=== PATIENT | male | born 1950 | race Caucasian/White ===

== ENCOUNTER 2021-07-26 17:51 | Inpatient (IN) | payer OTHER ==
[~2021-07-26] VITALS: Ht 152.4 cm; Wt 96.6 kg
[2021-07-27] MEDS ORDERED: COUMARIN1 GM PO ×2 (00:29→00:30)
[2021-07-27] MEDS ORDERED: LASIX 40 MG TAB40 MG PO (00:30)
[2021-07-27] MEDS ORDERED: PRINIVIL20 M1 PO (00:31)
[2021-07-27] MEDS ORDERED: ZYLOPRIM100 MG PO (00:31)
[2021-07-27] MEDS ORDERED: CRESTOR20 MG PO (00:31)
[2021-07-27 04:00] VITALS: BP 136/81
[2021-07-27 05:24] LABS: HEMATOCRIT 34.9 % (42.0-52.0); HEMOGLOBIN 11.6 gm/dL (14.0-18.0); MCH 30.7 pg (26.0-34.0); MCHC 33.2 g/dL (28.0-37.0); MCV 92.6 fL (80.0-100.0); RBC 3.77 mil/uL (4.50-6.00); WBC 6.3 thou/uL (4.0-11.0)
--- NOTE | 2021-07-27 05:24 | NUR ---
ADMIT PT ADMITTED DIRECT ADMIT FROM [facility] ED. BEING ADMITTED WITH GROSS HEMATURIA. ARRIVED WITH EMS. ADMISSION ASSESSMENT AND QUESTIONAIRE COMPLETED. PT A/O X4. UP WITH SBA. LUNGS DIMINISHED AND ON 2 LITERS O2 VIA NC. REPORTS PENIS PAIN AND ABDOMINAL PAIN FROM BLADDER DISTENSION. BONE CATHETER IRRIGATED AND LARGE CLOTS REMOVED. REPLACED CATHETER WITH 3 WAY CATHETER AND CBI INITIATED. LARGE CLOTS REMOVED URINE CLEARED THROUGHOUT SHIFT BUT WOULD CLOT OFF IF RATE OF CBI DECREASED. 2 DOSES OF MORPHINE GIVEN WITH SOME EFFECT PT RESTED EASIER AFTER MEDICATION. IV STARTED IN RIGH HAND 22 G AND NS INFUSING AT 75CC/HR 1 GRAM OF ROCEPHIN GIVEN ORDERED CONTINUE TO MONITOR.
[2021-07-27 05:55] LABS: INR 2.86; PROTIME 29.7 Seconds (10.5-12.1)
[2021-07-27 06:07] LABS: ALBUMIN 3.6 g/dL (3.4-5.0); CALCIUM 8.7 mg/dL (8.5-10.1); CREATININE 0.9 mg/dL (0.7-1.3); POTASSIUM 3.8 mmol/L (3.5-5.1); TOTAL BILIRUBIN 1.1 mg/dL (0.2-1.0)
--- NOTE | 2021-07-27 08:09 | NUR ---
Assess due to high BMI 41.6/extreme obesity. Admit with hematuria, urinary retention. Hx Hodgkins lymphoma with chemo. CT indicating ? met process. NPO for now, on IVF. No reports wt or appetite changes. Low nutrition risk.
[2021-07-27 10:11] LABS: % SATURATION 19 % (20-39); IRON 70 ug/dL (65-175); TIBC 376 ug/dL (250-450)
[2021-07-27] MEDS ORDERED: PRINIVIL20 MG PO (10:32)
[2021-07-27] MEDS ORDERED: WARFARIN SODIUM4 MG PO (10:32)
[2021-07-27] MEDS ORDERED: ROSUVASTATIN CA20 MG PO (10:33)
[2021-07-27] MEDS ORDERED: FUROSEMIDE 40 M40 M1 PO (10:33)
[2021-07-27] MEDS ORDERED: PRED FORTE 1% EY5 M1 RT. EYE (10:34)
[2021-07-27] MEDS ORDERED: WARFARIN SODIUM5 MG PO (10:35)
[2021-07-27] MEDS ORDERED: ALLOPURINOL 10100 M1 PO (10:36)
[2021-07-27] MEDS ORDERED: METOPROLOL SUCC50 MG PO (10:36)
[2021-07-27 12:00] VITALS: BP 143/65
[2021-07-27 16:00] VITALS: BP 130/69
[2021-07-27 18:47] LABS: URINE BILIRUBIN NEGATIVE (Negative); URINE BLOOD 3+ (Negative); URINE CLARITY CLEAR; URINE COLOR YELLOW; URINE GLUCOSE-RANDOM* NEGATIVE (Negative); URINE KETONES NEGATIVE (Negative); URINE LEUKOCYTES-REFLEX NEGATIVE (Negative); URINE NITRITE-REFLEX NEGATIVE (Negative); URINE PROTEIN (DIPSTICK) NEGATIVE (Negative); URINE UROBILINOGEN 0.2 E.U./dl (0.2-1.0)
[2021-07-27 19:35] LABS: BACTERIA-REFLEX 1-9 Few /HPF (None Seen); CASTS None Seen /LPF (None Seen); CRYSTALS None Seen /LPF (None Seen); SQUAMOUS 0-3 Few /LPF (0-3); URINE RBC 3-10 Few /HPF (NONE SEEN); URINE WBC-REFLEX 0-5 Rare /HPF (0-5)
[2021-07-27 19:58] VITALS: BP 134/70
[2021-07-28 00:06] LABS: IgG 1602 mg/dL (603-1613)
[2021-07-28 03:35] LABS: HEMATOCRIT 33.1 % (42.0-52.0); HEMOGLOBIN 10.9 gm/dL (14.0-18.0); MCH 30.2 pg (26.0-34.0); MCHC 32.8 g/dL (28.0-37.0); MCV 92.2 fL (80.0-100.0); RBC 3.59 mil/uL (4.50-6.00); RDW 15.7 % (10.5-14.5); WBC 4.9 thou/uL (4.0-11.0)
[2021-07-28 03:49] VITALS: BP 157/76
[2021-07-28 04:34] LABS: INR 2.82; PROTIME 29.3 Seconds (10.5-12.1)
[2021-07-28 04:37] LABS: ALBUMIN 3.2 g/dL (3.4-5.0); CALCIUM 8.5 mg/dL (8.5-10.1); CREATININE 0.9 mg/dL (0.7-1.3); PHOSPHORUS 3.3 mg/dL (2.5-4.9); POTASSIUM 3.2 mmol/L (3.5-5.1)
--- NOTE | 2021-07-28 06:06 | NUR ---
PATIENT HAS BEEN KEPT NPO FROM MIDNIGHT ON IN ANTICIPATION OF TODAYS PROCEDURE DESPITE ORDER NOT BEING PLACED UNTIL MORNING.
[2021-07-28 07:30] VITALS: BP 149/115
[2021-07-28 11:21] VITALS: BP 128/75
[2021-07-28 15:08] LABS: CERULOPLASMIN 29.5 mg/dL (16.0-31.0)
[2021-07-28 15:10] VITALS: BP 154/82
--- NOTE | 2021-07-28 15:12 | NUR ---
Case opened to follow for dc planning. Chart reviewed and case discussed with the care team. Cm role introduced to the pt/his at bedside. Pt is a&ox4 and indicates that he is normally indep with tx,gait and adl's at home. He can avoid steps. No dme or hh. Plan is dc home with madrigal and leg bag with outpt urology f/u in the [facility] office in [place]. Pt and indicate they have the contact info for f/u appts and are aware that GI and Pulm are also recommending outpt f/u for his new liver chirrhosis and lung nodule bx. Pt's works fulltime but will be off for the next week due to the holiday. Pt's pcp is Dr. Amy Myers at [facility]. They deny an dc concerns at this time. Ur nurse notified that pt's primary ins is [employer] per his 's employer ([employer]) and his medicare is secondary. Will follow along should dc needs arise.
--- NOTE | 2021-07-28 16:23 | NUR ---
ASSUMED CARE AT SHIFT CHANGE. PT A/O X 4, ANXIOUS AT TIMES. CONTINUING ON CBI, WEAN TOLERATED PER UROLOGY. PT CONTINUES WITH PINK UO WITH SMALL CLOTS THIS AFTERNOON. C/O BURNING PAIN AT CATHETER INSERTION SITE WITH MOVEMENT. ALSO SOME PRESSURE IN BLADDER WHEN BONE BAG IS FULL. PT UP WITH SBA TO BSC THIS AFTERNOON. STEADY GAIT. VSS. WILL CONT TO MONITOR AND FOLLOW POC.
[2021-07-28 19:32] VITALS: BP 120/68
[2021-07-29 04:53] VITALS: BP 128/62
--- NOTE | 2021-07-29 05:11 | NUR ---
PT DID WELL THRO THE NOC. LESS ANXIETY WITH THE CBI.[address] WAY [address], CBI AT A SLOW RATE AND URINE IS NOT BLOODY. NO CLOTS NOTED. PT REPORTS FEELING LIKE WANTING TO URINATE AND A LITTLE PRESSURE BUT YET DOES NOT NEED ANY PAIN MEDS.
[2021-07-29 05:52] LABS: HEMATOCRIT 31.4 % (42.0-52.0); HEMOGLOBIN 10.3 gm/dL (14.0-18.0); MCH 30.2 pg (26.0-34.0); MCV 91.7 fL (80.0-100.0); RBC 3.42 mil/uL (4.50-6.00); RDW 15.7 % (10.5-14.5); WBC 3.1 thou/uL (4.0-11.0)
[2021-07-29 06:30] LABS: PROTIME 13.7 Seconds (10.5-12.1)
[2021-07-29 06:37] LABS: INR 1.27
[2021-07-29 07:30] VITALS: BP 130/65
[2021-07-29] MEDS ORDERED: FLOMAX0.4 MG PO (08:46)
[2021-07-29] MEDS ORDERED: CEFUROXIME500 MG PO (08:46)
[2021-07-29 10:40] VITALS: BP 130/65
--- NOTE | 2021-07-29 10:54 | NUR ---
PT IS ALERT AND ORIENTED X4. CBI WAS DISCONTINUED THIS AM. PER UROLOGY, PT IS OK TO RESUME WARFARIN. REVIEWED INSTRUCTIONS FOR UROLOGY. REVIEWED DISCHARGE INSTRUCTIONS WITH PT. PT VERBALIZED UNDERSTANDING OF INSTRUCTIONS AND NEW MEDICATIONS. PROVIDED PT WITH CATHETER CARE INSTRUCTIONS. PT IS CURRENTLY WAITING FOR TO ARRIVE TO LEAVE. WILL CONTINUE TO MONITOR.
--- NOTE | 2021-07-29 11:30 | NUR ---
LEG BAG PLACED ON BONE. EDUCATED PT REGARDING BONE CARE. PT AND VERBALIZED UNDERSTANDING. IV DISCONTINUED. PT LEFT VIA WHEELCHAIR WITH STAFF AND TO EXIT WITH DRIVING PRIVATE VEHICLE.
[2021-07-29 13:08] LABS: ANA INTERPRETATION Negative (Negative)
[2021-07-29 22:07] LABS: HAV IgM AB (ANTI-HAV IgM) Negative (Negative); HEPATITIS B SURFACE AG Negative (Negative); HEPATITIS C VIRUS AB <0.1 (0.0-0.9)
== END 2021-07-29 11:36 | disposition home or self-care (01) | DRG 690 ==
LOC: 4S 17:51 → 2N 18:56
PROVIDERS: Nurse Practitioner; Nurse Practitioner Family; Physician Assistant; ADMIT Hospitalist; ATTEND Hospitalist
DX: N30.91 Cystitis, unspecified with hematuria (principal); K74.60 Unspecified cirrhosis of liver; R33.9 Retention of urine, unspecified; R91.1 Solitary pulmonary nodule; M10.9 Gout, unspecified; I50.9 Heart failure, unspecified; I48.91 Unspecified atrial fibrillation; I11.0 Hypertensive heart disease with heart failure; R59.1 Generalized enlarged lymph nodes; D69.6 Thrombocytopenia, unspecified; K80.20 Calculus of gallbladder without cholecystitis without obstruction; Z79.01 Long term (current) use of anticoagulants; Z85.72 Personal history of non-Hodgkin lymphomas; Z92.21 Personal history of antineoplastic chemotherapy; Z88.1 Allergy status to other antibiotic agents; Z88.0 Allergy status to penicillin; Z95.2 Presence of prosthetic heart valve; Z95.0 Presence of cardiac pacemaker; Z87.891 Personal history of nicotine dependence
CPT/HCPCS: 10081

== ENCOUNTER → 2021-09-16 | Outpatient (CLI) | payer OTHER ==
[~2021-09-16] MED LIST: ALLOPURINOL 10100 M1 PO; CEFUROXIME500 MG PO; COUMARIN1 GM PO; CRESTOR20 MG PO; FLOMAX0.4 MG PO; FUROSEMIDE 40 M40 M1 PO; LASIX 40 MG TAB40 MG PO; METOPROLOL SUCC50 MG PO; PRED FORTE 1% EY5 M1 RT. EYE; PRINIVIL20 M1 PO; PRINIVIL20 MG PO; ROSUVASTATIN CA20 MG PO; WARFARIN SODIUM4 MG PO; WARFARIN SODIUM5 MG PO; ZYLOPRIM100 MG PO
== END ==
LOC: LAB 05:31
PROVIDERS: ATTEND Student in an Organized Health Care Education/Training Program
DX: Z20.822 Contact with and (suspected) exposure to COVID-19 (principal)

== ENCOUNTER → 2021-09-19 | Outpatient (CLI) | payer OTHER ==
[~2021-09-19] VITALS: Ht 177.8 cm; Wt 96.6 kg
--- NOTE | 2021-09-22 10:08 | PATH ---
[facility] [place] [address] PATHOLOGY RPT PROCEDURE Name: GEORGE CONDON Francis Room #: [facility].Francis.#: [id number] Admission: 09/19/21 Date of : 46 Discharge: Report #: [id number] Path Case #: [id number] [facility] Accession Number: [id number] . 01 Material submitted: . PART A: small bowel - SMALL BOWEL BIOPSY PART B: gastrointestinal site - RANDOM GASTRIC BIOPSIES; R/O H. PYLORI PART C: colon - TRANSVERSE COLON POLYP. Modifiers: transverse PART D: colon - DESCENDING COLON X6. Modifiers: descending, X6 PART E: sigmoid colon - SIGMOID MASS . 01 Clinical history: . ESOPHAGOGASTRODUODENOSCOPY, COLONOSCOPY ABNORMAL CT OF THE ABDOMEN, CIRRHOSIS OF THE LIVER MALIGNANT NEOPLASM . 02 Diagnosis: A. Small bowel mucosa (biopsy): - Mild to moderate non-specific chronic inflammation of lamina propria with focal glandular regenerative changes. . B. Gastric mucosa (random gastric biopsies): - Ulceration with marked chronic gastritis, moderate activity, negative for dysplasia, negative for intestinal metaplasia, numerous Helicobacter-like organisms identified. . C. Colonic mucosa (transverse colon polyp): - Hyperplastic polyp. . D. Colonic mucosa (descending colon biopsies): - Tubular adenomata and hyperplastic polyps. . E. 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 LBQ 09/21/2021 1526 Local . 02 Comment: This case is co-reviewed by Dr. Mao Bustillos on 09/21/21. Dr. Kauffman's office is telephone with this report on 09/21/21. (SWK/db; 09/21/2021) . IHC for H. pylori on B: Strongly positive . 02 Electronically signed: . Mike Orta MD, Pathologist NPI- [id number] . [address] [place] [address] PATHOLOGY RPT PROCEDURE Name: GEORGE CONDON Room #: REG CLI Stan#: [id number] Admission: 09/19/21 Date of : 46 Discharge: Report #: [id number] Path Case #: [id number] Gross description: . A. The specimen is received in formalin, labeled "George Condon, small bowel biopsy". Received are two segments of pale mcgee tissue measuring 0.4 and 0.5 cm in maximum dimensions. The specimen is submitted entirely in cassette A1. . B. The specimen is received in formalin, labeled "George Condon, random gastric biopsy, R/O H. pylori". Received are four segments of pale mcgee tissue ranging in size from 0.4-0.6 cm in maximum dimensions. The specimen is submitted entirely in cassette B1. . C. The specimen is received in formalin, labeled "George Condon, transverse colon polyp". Received is a segment of pale mcgee tissue measuring 0.4 cm in maximum dimensions. The specimen is submitted entirely in cassette C1. . D. The specimen is received in formalin, labeled "George Condon, descending colon x6". Received are six segments of pale mcgee tissue ranging in size from 0.3-0.6 cm in maximum dimensions. The specimen is submitted entirely in cassette D1. . E. The specimen is received in formalin, labeled "George Condon, sigmoid mass". Received are four segments of pale mcgee tissue ranging in size from 0.3-0.4 cm in maximum dimensions. The specimen is submitted entirely in cassette E1. (CAA; 09/20/2021) QAC/QAC 09/20/2021 1048 Local . 02 Pathologist provided ICD-10: K52.9, K25.9, K29.50, K63.5, D12.4, K63.5, C18.7 . 02 CPT . 284736, [id number], [id number], [id number], [id number], [id number] Specimen Comment: A courtesy copy of this report has been sent to [phone] Specimen Comment: Report sent to Specimen Comment: A duplicate report has been generated due to demographic updates. Performed at: 01 [facility] [address] [place] [address] [address], [place] [id number] MD Kunal Nur MD Phone: [phone] Performed at: 02 [facility] [id number] [address] [id number] MD Mike Orta MD Phone: [phone]
== END ==
LOC: GI
PROVIDERS: ATTEND Internal Medicine Gastroenterology
DX: Z12.11 Encounter for screening for malignant neoplasm of colon (principal); C18.7 Malignant neoplasm of sigmoid colon; D12.4 Benign neoplasm of descending colon; K52.9 Noninfective gastroenteritis and colitis, unspecified; K25.9 Gastric ulcer, unspecified as acute or chronic, without hemorrhage or perforation; K29.50 Unspecified chronic gastritis without bleeding; K74.60 Unspecified cirrhosis of liver; I85.10 Secondary esophageal varices without bleeding; K31.89 Other diseases of stomach and duodenum; K56.690 Other partial intestinal obstruction; K64.8 Other hemorrhoids; I86.8 Varicose veins of other specified sites; I11.0 Hypertensive heart disease with heart failure; I50.9 Heart failure, unspecified; I48.91 Unspecified atrial fibrillation; E78.00 Pure hypercholesterolemia, unspecified; N40.0 Benign prostatic hyperplasia without lower urinary tract symptoms; M10.9 Gout, unspecified; Z98.890 Other specified postprocedural states; Z95.0 Presence of cardiac pacemaker; Z79.01 Long term (current) use of anticoagulants; Z87.891 Personal history of nicotine dependence; Z85.72 Personal history of non-Hodgkin lymphomas; Z95.2 Presence of prosthetic heart valve
CPT/HCPCS: 62110; 62900